=== PATIENT | female | born 1960 | race African-American/Black ===

== ENCOUNTER 2016-11-11 20:21 | Inpatient (IN) | payer OTHER, SELFPAY ==
[~2016-11-11] VITALS: Ht 160 cm; Wt 103.6 kg
[2016-11-11] MEDS ORDERED: FUROSEMIDE 40 MG/4 ML VIAL (J1940) IV ONE (21:15)
[2016-11-11] MEDS ORDERED: hydrALAZINE INJ 20 MG/ML VIAL IV ONE (21:15)
[2016-11-11] MEDS ORDERED: NITROGLYCERIN 2% OINT 1 GM *U/D* PKT TOP ONE (21:30)
[2016-11-11 21:42] LABS: MEAN CORPUSCULAR HEMOGLOBIN 18.2 pg (27.0-33.0); MEAN CORPUSCULAR HGB CONC 26.5 g/dl (32.0-36.5); MEAN CORPUSCULAR VOLUME 68.8 fl (80.0-96.0); PLATELET COUNT, AUTOMATED 340 k/mm3 (150-450); RED CELL DISTRIBUTION WIDTH 17.4 % (11.5-14.5); WHITE BLOOD COUNT 8.2 K/mm3 (4.0-10.0)
[2016-11-11 21:43] LABS: INR 1.01
[2016-11-11 21:58] LABS: ANION GAP 5 MEQ/L (8-16); BLOOD UREA NITROGEN 11 MG/DL (7-18); CALCIUM LEVEL 8.3 MG/DL (8.5-10.1); CARBON DIOXIDE LEVEL 31 MEQ/L (21-32); CHLORIDE LEVEL 103 MEQ/L (98-107); CREATININE FOR GFR 0.62 MG/DL (0.55-1.02); GLOMERULAR FILTRATION RATE > 60.0 (>51); GLUCOSE, FASTING 115 MG/DL (70-105); POTASSIUM SERUM 3.5 MEQ/L (3.5-5.1); SODIUM LEVEL 139 MEQ/L (136-145); T UPTAKE 35 % (30-39); THYROXINE (T4) 8.4 UG/DL (4.5-12.0)
[2016-11-11 22:30] LABS: ANISOCYTOSIS 1+; BASOPHILS 2 % (0-4); EOSINOPHILS 3 % (0-5); HYPOCHROMASIA 1+; MICROCYTOSIS 3+; POIKILOCYTOSIS 1+
[2016-11-11 22:31] LABS: OVALOCYTES 1+; POLYCHROMASIA 1+; SCHISTOCYTES 1+
[2016-11-12] VITALS (7 sets, daily range): BP systolic 122–162; BP diastolic 69–100
[2016-11-12] MEDS ORDERED: ONDANSETRON 4MG/2ML VIAL (J2405) IV PRN
[2016-11-12 05:24] LABS: MEAN CORPUSCULAR HEMOGLOBIN 17.9 pg (27.0-33.0); MEAN CORPUSCULAR HGB CONC 26.3 g/dl (32.0-36.5); MEAN CORPUSCULAR VOLUME 68.1 fl (80.0-96.0); RED CELL DISTRIBUTION WIDTH 17.4 % (11.5-14.5); RETIC HEMOGLOBIN CONTENT CHr 19.8 PG (24-36); RETICULOCYTE % ADVIA2120 2.4 % (0.5-1.5)
[2016-11-12] MEDS: ACETAMINOPHEN TAB 650MG DOSE (2X325MG) PO PRN (05:51)
[2016-11-12 06:01] LABS: ALBUMIN 3.3 GM/DL (3.2-5.2); ANION GAP 5 MEQ/L (8-16); BLOOD UREA NITROGEN 8 MG/DL (7-18); CARBON DIOXIDE LEVEL 32 MEQ/L (21-32); CHLORIDE LEVEL 105 MEQ/L (98-107); CREATININE FOR GFR 0.49 MG/DL (0.55-1.02); GLOMERULAR FILTRATION RATE > 60.0 (>51); GLUCOSE, FASTING 101 MG/DL (70-105); MAGNESIUM LEVEL 2.1 MG/DL (1.8-2.4); PERCENT SATURATION 3.3 % (13.2-37.4); PHOSPHORUS LEVEL 3.6 MG/DL (2.5-4.9); POTASSIUM SERUM 3.7 MEQ/L (3.5-5.1); SODIUM LEVEL 142 MEQ/L (136-145); TOTAL IRON BINDING CAPACITY 478 UG/DL (250-450)
[2016-11-12 06:02] LABS: FERRITIN 10 NG/ML (8-252)
--- NOTE | 2016-11-12 06:11 | HPE ---
DATE OF ADMISSION: 11/12/2016 PRIMARY CARE PROVIDER: None. CHIEF COMPLAINT: Shortness of breath. HISTORY OF PRESENT ILLNESS: Ms. Mack is pleasant, 56-year-old female with past medical history of right sided goiter who presented to the emergency department (ED) [facility] with complaint of worsening shortness of breath and chest tightness. Episode started earlier today at home while she was trying to lie down and take a nap. States that earlier during the day she went to school and was walking up three flights of stairs where she noticed her shortness of breath first started. However she went on about her day and later came home and rest. However, as she attempted to go lie down, she started developing shortness of breath and chest tightness. Tightness was located in the midsternal area. No radiation. No nausea, vomiting, numbness or tingling. No jaw pain. Because of her persistent symptoms, she decided to come in [facility] for further evaluation. The episode lasted for 2 hours and did not improve until she was given Lasix in the ED. States that she has had progressive shortness of breath ongoing for at least 6 months. Prior to 6 months ago was able to walk 5 miles a day without any difficulty with breathing. However, sometime around 6 months ago, noticed that she would get winded easily after walking 24 steps of stairs and walking 50 feet. Her symptoms would improve on its own with rest. However, they have worsened to the point that now lying flat or sitting will bring on shortness of breath. Associated with dry cough, which is worsened in the cold weather or around smoke or perfume, intermittent leg swelling, paroxysmal nocturnal dyspnea, pillow orthopnea, has been sleeping sitting upright to sleep. Has been more thirsty in the last week and drinks more than 4 bottles of water a day, each one is 34 ounces. Denies weight changes. Also, notices her symptoms tend to worsen when her neck is more swollen. Reports that she has had intermittent neck swelling ongoing in the last 2 years, and when it does get swollen she feels that it is cutting off her airway. Also endorses coughing spells whenever eating or swallowing pills. She has never been evaluated for her symptoms. In the ED was given Nitrobid and Lasix 40 mg times one. Since administration of Lasix, she has urinated six times, although this is not measured. PAST MEDICAL HISTORY: 1. Right goiter developed 2 years ago. Previously to this had thyroid nodule and was evaluated by Dr. Roman. Unfortunately, because of negative experience, she has since stopped going. 2. Anemia. 3. Phobia. 4. Leg spasms. PAST SURGICAL HISTORY: None. ALLERGIES: None. MEDICATIONS: - Advil 200 mg every 3 days for her restless leg and occasionally takes Tylenol. SOCIAL HISTORY: Patient is a nonsmoker. No alcohol or drug use. No travel. 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 Currently goes to school. No tuberculosis or asbestos exposure she is aware of. Currently lives at home. FAMILY HISTORY: Father in his 90s who is healthy. Mother who is 99 had multiple sclerosis (MS) and questionable CVA. A son who is 33 is cured from Hodgkin's lymphoma and one son with asthma. REVIEW OF SYSTEMS: CONSTITUTIONAL: Negative for fevers, chills, rigors, weight changes. Positive for decreased appetite. HEENT: No headaches, lightheadedness, dizziness. Positive for hoarse sounding whenever her neck is enlarged and intermittent difficulty with swallowing with food and pills. EYES: Negative for blurry vision, double vision, or transient vision loss. CARDIOVASCULAR: As above. PULMONARY: As above. GASTROINTESTINAL: Denies hematochezia, melena, or hematemesis, nausea, vomiting , diarrhea, constipation. GENITOURINARY: No dysuria, frequency or hematuria. MUSCULOSKELETAL: No bone, muscle, joint pain. NEUROLOGICAL: No paralysis, paresthesia, headaches. ENDOCRINE: Positive for right goiter, as mentioned above, positive for polydipsia. LYMPHATICS: Positive for right-sided neck mass, was told that she had a goiter. No lumps, bumps, or swelling anywhere in axilla, or groin. HEMATOLOGY: No abnormal bleeding or bruising. ONCOLOGY: No personal history of malignancy PSYCHIATRIC: Positive for phobia to hospitals and doctors. INTEGUMENT: No new rashes or lesions PHYSICAL EXAMINATION: VITAL SIGNS: Blood pressure initially was 179/84, repeat later was 142/90. Heart rate initially 112, repeat was 100. Temperature 98.2. Respiration rate 20. Pulse oximetry 96% on room air. GENERAL: Patient is sitting in bed of 90 degree angle, comfortable, no acute respiratory with psychiatric distress. Daughter at bedside. Pleasant, cooperative, although she appears easily anxious. Is able to speak in full sentences without any respiratory difficulty. HENT: Normocephalic, atraumatic. Moist oral mucosa with a few missing teeth. Oral mucosa is clear without any oral lesions appreciated. Nasal septum midline. EYES: Extraocular movement intact. Pupils equal and reactive to light. NECK: She has an enlarged mass on her right side measuring approximately 8 cm x 7 cm, nontender to palpation. States that she has had a larger size than this currently. There is thyromegaly on her left side as well, but less significant compared to her right. Neck vein is approximately by her ear sitting upright. Difficult to appreciate trachea due to her significant sized mass. LUNGS: Breath sounds are diminished bilateral lung bases, some dullness to the bilateral lung base, but no appreciable wheezing, rales or rhonchi. HEART: Is regular rate and rhythm with normal S1 and S2. Did not appreciate murmurs, rubs or gallop. ABDOMEN: Is obese but nontender, nondistended. Bowel sounds present. No guarding. No rebound. No paronychia sign. EXTREMITIES: Trace pitting edema bilateral lower extremity with left more so compared to right. Pedal pulses are present bilaterally. No clubbing of the nailbed. INTEGUMENT: No obvious rashes or lesions appreciated. GENITOURINARY (): Rectal exam performed with family present. Her hemoccult was negative. NEUROLOGIC: She is alert, awake, oriented times three. Strength 5/5 in all extremities. Sensory intact. Normal gait. PSYCHIATRIC: Appears anxious. Initially wanted leave but agreed to stay. LABORATORY DATA: WBC 8.2, hemoglobin 8.1, this has decreased from her labs back in 2001, at that point was 9.4, hematocrit 30.6 and platelet 340. Sodium 139, potassium 3.5, chloride 103, carbon dioxide 31, BUN 11, creatinine 0.62, glucose 115, calcium 8.2. Four sets of cardiac markers negative. Thyroid study normal. BNP 252. PT 13.4, INR 1.01. Chest x-ray shows cardiomegaly, some pulmonary congestion with trachea deviated. EKG show ventricular rate of 103, sinus tachycardia with occasional PVCs, left ventricular hypertrophy, poor R wave progression. IMPRESSION AND PLAN: Ms. Mack is 56-year-old female with history of anemia, right-sided goiter who presented to the emergency department [facility] with complaint of shortness of breath. 1. Shortness of breath. Possible causes include congestive heart failure (CHF) exacerbation, anemia, CAD versus other. The patient will be admitted for close monitoring. She responded well with the one time dose of Lasix IV given in the ED, although we do not have an accurate output after Lasix administration. Have started her on Lasix IV 40 twice a day with net negative, strict intake and output and daily weight. Continue to trend cardiac marker. In review of her prior labs going back to 2001, she has had history of anemia before. Therefore, will check iron studies. She was fecal occult blood test (FOBT) negative on exam today. Have ordered an echocardiogram to further evaluate her cardiac function. Her chest x-ray does show cardiomegaly and she does have left ventricular hypertrophy on EKG. 2. Anemia. She currently is hemodynamically stable without evidence of bleeding at this time. Have checked for iron studies as mentioned above. Continue to monitor. Question how much of this could also be related to dilutional due to her CHF. 3. Hypertension. The patient has no prior diagnosis of hypertension. Will continue Lasix. Have also added Norvasc. She was started on one time dose of Nitrobid in the ED. 4. Edema. Could be due to combination of obesity, CHF, and hypertension. Have ordered an echocardiogram as mentioned above. 5. Goiter. She has a significant sized mass on examination today. Per patient, she has had a size larger than this in the past. Her thyroid studies were normal. I have ordered an ultrasound of her neck to further evaluate as she appears to have enlargement on her left side as well. This might also contribute to her breathing. Patient also reports cough with eating food and swallowing pills. Have ordered for speech and swallow to further evaluate. 6. Obesity. Will complicate medical management. 7. Polydipsia with abnormal glucose. Will check hemoglobin A1c. 8. Deep venous thrombosis (DVT) prophylaxis. Sequential compressive device (SCD), thromboembolism deterrents (TEDs) and Lovenox. My preceptor for this patient encounter was Anat Rodriguez MD. The preceptor was physically present in the building during the encounter and was fully available. As needed, all aspects of the patient interview, examination, medical decision making process, and medical care plan development were reviewed and approved by the preceptor. The preceptor is aware and concurs with the plan as stated in the body of this note and will attest to such by his/her co-signature. FOSTER
[2016-11-12] MEDS ORDERED: ISOVUE-370 76% 100ML VIAL (Q9967) As Ordered ONE ×2 (07:36→08:44)
--- NOTE | 2016-11-12 08:19 | REP ---
Portable chest, single AP view, patient sitting: There are no comparisons. Cardiac size is enlarged. There are no focal infiltrates. No pleural effusions. There is no pulmonary edema. The superior trachea is deviated to the left in this patient with known goitrous enlargement of the thyroid right lobe. Signed by Wilfredo Solorio MD 11/12/2016 08:11 A
--- NOTE | 2016-11-12 08:32 | REP ---
Thyroid ultrasound: There are no comparisons. The right lobe is markedly enlarged and markedly heterogeneous diffusely with no normal thyroid parenchyma identified. The right lobe measures 13.8 x 8.3 x 6.8 cm. The left lobe is normal size measuring 4.3 x 1.9 x 1.6 cm. There are two left lobe heterogeneous nodules, one at the upper/mid pole maximally measuring 1.3 cm, and the other in the lower pole maximally measuring 0.9 cm. The left lobe parenchyma is heterogeneous. The isthmus is mildly thickened measuring 3.7 meters. Signed by Wilfredo Solorio MD 11/12/2016 08:23 A
[2016-11-12] MEDS: METOPROLOL TART 25 MG TABLET PO SCH ×2 (09:00→20:44)
[2016-11-12] MEDS: amLODIPine 5 MG TAB PO SCH (09:25)
[2016-11-12] MEDS ORDERED: ACETAMINOPHEN TAB 650MG DOSE (2X325MG) PO PRN (09:30)
--- NOTE | 2016-11-12 09:38 | REP ---
CT of the chest with IV contrast, CT pulmonary angiography: There is a large superior mediastinal mass on the right, likely enlarged right lobe of the thyroid. This mass displaces the upper trachea and hypopharynx to the left and slightly effaces the upper trachea and hypopharynx. There are no emboli in the pulmonary trunk or central pulmonary arteries. There are no emboli in the pulmonary artery lobe or segment branches. There are no infiltrates, effusions or masses. There are numerous bulla replacing the lung parenchyma in the left upper lobe. There are scattered bulla throughout the remainder of the lung meyers bilaterally. Findings are compatible with bullous emphysema. The thoracic aorta is unremarkable. Cardiac size is enlarged. There is no pericardial effusion. Images of the visualized upper abdomen are somewhat degraded from beam hardening artifact as a consequence of patient size, however, the visualized upper abdominal contents are grossly unremarkable. Impression: There are no pulmonary emboli. There are no infiltrates, effusions or masses. There are findings compatible with bullous emphysema. There is a large anterior mediastinal mass on the right, likely the enlarged right lobe of the thyroid. This mass displaces and effaces the upper trachea and hypopharynx. Signed by Wilfredo Solorio MD 11/12/2016 09:30 A
[2016-11-12] MEDS: ENOXAPARIN 40 MG/0.4 ML SYRINGE (J1650) SC SCH (09:44)
--- NOTE | 2016-11-12 09:52 | REP ---
CT NECK WITH CONTRAST: HISTORY: Thyroid mass. A large mass with mild heterogeneous enhancement is present arising from the right thyroid lobe. The mass measures 9.7 cm in transverse by 6.3 cm in AP by 11.9 cm in cephalocaudal dimensions. There is inferior extension into the thoracic inlet. There is superior extension in the right carotid and retropharyngeal spaces to the level of the soft palate. There is a moderate mass effect on the franchesca- and hypopharynx, larynx and subglottic trachea. The nasopharynx is normal in appearance. The left thyroid lobe is normal in appearance. The surrounding tissue planes are intact. An enlarged lymph node 1.4 cm in width is present in the right posterior triangle at the level of the oropharynx. An enlarged lymph node 1.1 cm in width is present in the left posterior triangle at the level of the oropharynx. Small lymph nodes less than 1 cm in size are present in the submandibular and submental areas. Degenerative change is present in the cervical spine. The lung apices are clear. The visualized sinuses are clear. IMPRESSION: There is a large mass arising from the right thyroid lobe with moderate mass effect on the franchesca- and hypopharynx, larynx and subglottic trachea. Signed by Meng Moss MD 11/12/2016 10:01 A
[2016-11-12] MEDS: FUROSEMIDE 40 MG/4 ML VIAL (J1940) IV SCH (11:57)
[2016-11-12] MEDS ORDERED: POTASSIUM CHLORIDE 10 MEQ SR TABLET PO ONE (14:45)
--- NOTE | 2016-11-12 15:14 | ECGEPIP ---
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 Electronically Signed On 11-12-2016 15:14:26 EDT by Jeramie Gomes
--- NOTE | 2016-11-12 18:29 | ECGEPIP ---
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
[2016-11-13] VITALS (8 sets, daily range): BP systolic 122–164; BP diastolic 71–86
[2016-11-13] MEDS: ACETAMINOPHEN TAB 650MG DOSE (2X325MG) PO PRN (00:37)
[2016-11-13 05:24] LABS: MEAN CORPUSCULAR HGB CONC 26.2 g/dl (32.0-36.5); MEAN CORPUSCULAR VOLUME 68.8 fl (80.0-96.0); RED CELL DISTRIBUTION WIDTH 17.3 % (11.5-14.5); WHITE BLOOD COUNT 7.1 K/mm3 (4.0-10.0)
[2016-11-13 05:37] LABS: ALBUMIN 3.1 GM/DL (3.2-5.2); ANION GAP 5 MEQ/L (8-16); BLOOD UREA NITROGEN 12 MG/DL (7-18); CALCIUM LEVEL 8.2 MG/DL (8.5-10.1); CARBON DIOXIDE LEVEL 31 MEQ/L (21-32); CHLORIDE LEVEL 106 MEQ/L (98-107); CREATININE FOR GFR 0.58 MG/DL (0.55-1.02); GLOMERULAR FILTRATION RATE > 60.0 (>51); GLUCOSE, FASTING 112 MG/DL (70-105); MAGNESIUM LEVEL 2.4 MG/DL (1.8-2.4); PHOSPHORUS LEVEL 4.2 MG/DL (2.5-4.9); SODIUM LEVEL 142 MEQ/L (136-145)
[2016-11-13] MEDS: amLODIPine 5 MG TAB PO SCH (08:16)
[2016-11-13] MEDS: ENOXAPARIN 40 MG/0.4 ML SYRINGE (J1650) SC SCH (08:17)
[2016-11-13] MEDS: METOPROLOL TART 25 MG TABLET PO SCH ×2 (08:17→20:41)
[2016-11-13] MEDS ORDERED: SLF 3 ML SYR IV PRN (10:45)
--- NOTE | 2016-11-13 11:39 | IPNPDOC ---
Text Note Date of Service The patient was seen on 11/13/16. NOTE Subjective: Patient states her dyspnea has significantly improved. Minimal dysphagia. Objective: Vitals: (see below) General: No acute distress, laying comfortably in bed. HEENT: Very large thyroid mass on the right, extending towards the trachea. No bruit. No stridor. Neck: No JVD or lymphadenopathy Cardiac: RRR, No murmurs Pulm: Diminished breath sounds and mild hoarse crackles at the bases b/l. No wheezing, rhonchi Abd: NT/ND + BS Ext: No edema or cyanosis Labs (see below) Images: CTA Chest 11/12/16 Impression: There are no pulmonary emboli. There are no infiltrates, effusions or masses. There are findings compatible with bullous emphysema. There is a large anterior mediastinal mass on the right, likely the enlarged right lobe of the thyroid. This mass displaces and effaces the upper trachea and hypopharynx. CT Neck 11/12/16 A large mass with mild heterogeneous enhancement is present arising from the right thyroid lobe. The mass measures 9.7 cm in transverse by 6.3 cm in AP by 11.9 cm in cephalocaudal dimensions. There is inferior extension into the thoracic inlet. There is superior extension in the right carotid and retropharyngeal spaces to the level of the soft palate. There is a moderate mass effect on the franchesca- and hypopharynx, larynx and subglottic trachea. The nasopharynx is normal in appearance. The left thyroid lobe is normal in appearance. The surrounding tissue planes are intact. An enlarged lymph node 1.4 cm in width is present in the right posterior triangle at the level of the oropharynx. An enlarged lymph node 1.1 cm in width is present in the left posterior triangle at the level of the oropharynx. Small lymph nodes less than 1 cm in size are present in the submandibular and submental areas. Degenerative change is present in the cervical spine. The lung apices are clear. The visualized sinuses are clear. IMPRESSION: There is a large mass arising from the right thyroid lobe with moderate mass effect on the franchesca- and hypopharynx, larynx and subglottic trachea. Assessment/Plan 1. Acute decompensated heart failure- echocardiogram pending to evaluate ejection fraction. Tolerating diuretics well. Symptoms have significantly improved. EKG with no acute ST changes. Cardiac enzymes negative. We'll continue to monitor. 2. Very large thyroid mass causing mass effect- spoke with Dr. Galvin, we will be speaking with his colleague regarding surgical intervention. He does believe that the patient will likely benefit from a tertiary care center for excision of this mass. In the meantime, patient will be getting a thyroid biopsy to determine if this is malignant in nature. Thyroid function tests within normal limits. 3. Chronic anemia- appears to be iron deficiency anemia- no acute bleeding at this time. No vaginal bleeding. No reported hematochezia or melanotic stools. Will need outpatient colonoscopy. 4. Hypertension- controlled continue current meds 5. Obesity DVT prophy: Lovenox subcutaneous VS,Fishbone, I+O VS, Fishbone, I+O Laboratory Tests 11/13/16 05:05 Anion Gap 5 L, Red Blood Count 4.61, Mean Corpuscular Volume 68.8 L, Mean Corpuscular Hemoglobin 18.0 L, Mean Corpuscular Hemoglobin Concent 26.2 L, Red Cell Distribution Width 17.3 H Vital Signs Date Time Temp Pulse Resp B/P Pulse Ox O2 Delivery O2 Flow Rate FiO2 11/13/16 08:16 87 131/86 11/13/16 04:41 98.1 18 93 Room Air 11/11/16 21:34 96 I&O- Last 24 Hours up to 6 AM 11/13/16 06:00 Intake Total 720 ml Output Total 2250 ml Balance -1530 ml JOSUÉ YOUNGBLOOD MD Nov 13, 2016 11:39
[2016-11-13] MEDS: SLF 3 ML SYR IV SCH ×2 (12:42→20:41)
[2016-11-13] MEDS: FUROSEMIDE 40 MG/4 ML VIAL (J1940) IV SCH ×2 (12:42)
[2016-11-13] MEDS ORDERED: LIDOCAINE 1% MDV 20ML VIAL As Ordered ONE (14:06)
--- NOTE | 2016-11-13 18:19 | ECHO ---
DATE OF PROCEDURE: 11/13/2016 AGE: 56 GENDER: Female HEIGHT: 160 cm WEIGHT: 104 kg BODY SURFACE AREA: 2.05 m2 PATIENT LOCATION: Inpatient, PCU, room 3222 REFERRING PHYSICIAN: Anat Rodriguez MD INDICATION: Dyspnea. 2D MEASUREMENTS: RV: 3.5 cm LV: 6.7 cm Septum: 1.2 cm Posterior wall: 1.2 cm Aortic root: 3.0 cm LA: 5.0 cm COMMENTS: Normal sinus rhythm without intraventricular conduction disturbance. Prominently dilated left ventricle and left atrium. Right ventricle was upper limits of normal. LV wall thickness and right ventricular free wall thickness were also upper limits of normal in size. On real-time imaging from the parasternal and apical projections wall motion was mildly globally hypokinetic with estimated left ventricular ejection fraction of 35 - 40%. Normal-appearing mitral valvular apparatus and leaflet excursion with no posterior systolic buckling. Three equal size aortic cusps with marginally thickened cusp edges, but adequate cusp separation. Normal aortic root size. No apparent intracardiac mass or pericardial effusion. CONCLUSIONS: Findings in keeping with a dilated cardiomyopathy and moderate impairment of global resting left ventricular systolic function.
--- NOTE | 2016-11-13 20:28 | REP ---
Ultrasound-guided fine needle aspiration and core needle biopsy right thyroid mass lesion. History: Large right-sided goiter. Swallowing difficulty. Airway displacement. Procedure: The patient was interviewed and informed consent was obtained. The patient was placed semirecumbent and preliminary sonography confirms the presence of a heterogeneous solid right thyroid mass lesion. The skin was marked at an optimum biopsy entry site. After patient safety time-out was articulated and agreed to, the anterior neck skin was prepped and draped in the usual fashion. Utilizing 1% lidocaine for local anesthetic and real-time sonographic guidance, a series of four 1-1/2 inch 25 gauge needles were passed into the right thyroid mass without technical difficulty and a fine needle aspiration biopsy was accomplished. To core biopsy specimens were retrieved with a 19/20 gauge coaxial Temno cutting needle. The patient tolerated the procedure well. Specimens were submitted to cytology for histologic analysis. Impression: Ultrasound guided needle biopsy and fine needle aspiration biopsy right sided goiter. Signed by Juan Antonio Vaughan MD 11/14/2016 07:52 A
[2016-11-14] MEDS: FUROSEMIDE 40 MG/4 ML VIAL (J1940) IV SCH (00:23)
[2016-11-14 04:00] VITALS: BP 127/85
[2016-11-14] MEDS: SLF 3 ML SYR IV SCH ×2 (04:39→13:30)
[2016-11-14 05:37] LABS: MEAN CORPUSCULAR HGB CONC 26.3 g/dl (32.0-36.5); MEAN CORPUSCULAR VOLUME 68.5 fl (80.0-96.0); RED CELL DISTRIBUTION WIDTH 17.4 % (11.5-14.5); WHITE BLOOD COUNT 7.3 K/mm3 (4.0-10.0)
[2016-11-14 05:42] LABS: ANION GAP 5 MEQ/L (8-16); BLOOD UREA NITROGEN 11 MG/DL (7-18); CALCIUM LEVEL 8.2 MG/DL (8.5-10.1); CARBON DIOXIDE LEVEL 32 MEQ/L (21-32); CHLORIDE LEVEL 103 MEQ/L (98-107); CREATININE FOR GFR 0.48 MG/DL (0.55-1.02); GLOMERULAR FILTRATION RATE > 60.0 (>51); GLUCOSE, FASTING 104 MG/DL (70-105); MAGNESIUM LEVEL 2.1 MG/DL (1.8-2.4); PHOSPHORUS LEVEL 4.3 MG/DL (2.5-4.9); POTASSIUM SERUM 3.5 MEQ/L (3.5-5.1); SODIUM LEVEL 140 MEQ/L (136-145)
[2016-11-14 08:00] VITALS: BP 133/92
[2016-11-14] MEDS ORDERED: POTASSIUM CHLORIDE 10 MEQ SR TABLET PO ONE (08:00)
[2016-11-14] MEDS: amLODIPine 5 MG TAB PO SCH (08:26)
[2016-11-14] MEDS: METOPROLOL TART 25 MG TABLET PO SCH (08:26)
[2016-11-14] MEDS: ENOXAPARIN 40 MG/0.4 ML SYRINGE (J1650) SC SCH (08:27)
[2016-11-14] MEDS ORDERED: LISINOPRIL *2.5 MG* TAB PO SCH (09:00)
[2016-11-14] MEDS ORDERED: SPIRONOLACTONE 12.5MG PER 1/2 TABLET PO SCH (09:00)
[2016-11-14] MEDS ORDERED: FUROSEMIDE 40 MG TAB PO SCH (09:00)
[2016-11-14 12:00] VITALS: BP 132/76
--- NOTE | 2016-11-14 14:17 | DS.PDOC ---
Discharge Summary General Date of Admission Nov 12, 2016 at 08:59 Date of Discharge 11/14/16 Attending Physician: JOSUÉ YOUNGBLOOD MD Specialist/Consultants Involve: FRANCISCA GALVIN MD Discharge Summary PROCEDURES PERFORMED DURING STAY: None. ADMITTING/ISCHARGE DIAGNOSES: 1. Acute systolic and diastolic heart failure 2. Extensive thyroid mass with mass effect on hypopharynx/larynx/subglottic trachea 3. 3 beat Nonsustained V. tach 4. Chronic iron deficiency anemia 5. Hypertension 6. Obesity COMPLICATIONS/CHIEF COMPLAINT: Chf Exacerbation. HISTORY OF PRESENT ILLNESS/HOSPITAL COURSE: . This is a 56-year-old female past medical history of thyroid goiter, hypertension who presents complaining of dyspnea on exertion and orthopnea. Patient states that she initially had symptoms of worsening dyspnea and chest tightness that started the day prior to admission. She had progressed to having orthopnea. Patient started to walk up the stairs with progressive dyspnea on exertion. Patient denied any palpitations/syncopal episodes. She did have some mild tightness in the midsternal region that was nonradiating with no jaw pain. Given that the episode of dyspnea lasted for 2 hours, patient presented to the ED. On further investigation, patient was noted to have progressive dyspnea on exertion over the past 6 months. Prior to that she was able to walk 5 miles without difficulty. On admission patient was noted to have been decompensated heart failure. Patient was diuresed with Lasix and tolerated therapy well. Patient's dyspnea significantly improved. Of note patient did have an echocardiogram notable for 35-40% ejection fraction as well as diastolic dysfunction. The patient was started on metoprolol, lisinopril, spironolactone, and continue Lasix. The patient also had 1 episode of 3 beats nonsustained V. tach, during which she was asymptomatic. Patient had no recurrent episodes. The patient is much improved from a heart failure perspective. Patient will need to be followed up with Dr. Haddad for further management outpatient. On physical exam the patient was also noted to have a very large thyroid mass, which was imaged with a CT of the neck with contrast (see below). ENT was consulted, given the extent from the base of the skull to the mediastinum, Dr. Galvin has recommended that the patient be transferred to a tertiary center for further management. In the meantime the patient did have a biopsy of this thyroid mass with pathology pending. DISCHARGE MEDICATIONS: Please see below. ALLERGIES: Please see below. PHYSICAL EXAMINATION ON DISCHARGE: VITAL SIGNS: Please see below. General: No acute distress, laying comfortably in bed. HEENT: Very large thyroid mass on the right, extending towards the trachea. No bruit. No stridor. Neck: No JVD or lymphadenopathy Cardiac: RRR, No murmurs Pulm: Diminished breath sounds and mild hoarse crackles at the bases b/l. No wheezing, rhonchi Abd: NT/ND + BS Ext: No edema or cyanosis LABORATORY DATA: Please see below. IMAGING: CTA Chest 11/12/16 Impression: There are no pulmonary emboli. There are no infiltrates, effusions or masses. There are findings compatible with bullous emphysema. There is a large anterior mediastinal mass on the right, likely the enlarged right lobe of the thyroid. This mass displaces and effaces the upper trachea and hypopharynx. CT Neck 11/12/16 A large mass with mild heterogeneous enhancement is present arising from the right thyroid lobe. The mass measures 9.7 cm in transverse by 6.3 cm in AP by 11.9 cm in cephalocaudal dimensions. There is inferior extension into the thoracic inlet. There is superior extension in the right carotid and retropharyngeal spaces to the level of the soft palate. There is a moderate mass effect on the franchesca- and hypopharynx, larynx and subglottic trachea. The nasopharynx is normal in appearance. The left thyroid lobe is normal in appearance. The surrounding tissue planes are intact. An enlarged lymph node 1.4 cm in width is present in the right posterior triangle at the level of the oropharynx. An enlarged lymph node 1.1 cm in width is present in the left posterior triangle at the level of the oropharynx. Small lymph nodes less than 1 cm in size are present in the submandibular and submental areas. Degenerative change is present in the cervical spine. The lung apices are clear. The visualized sinuses are clear. IMPRESSION: There is a large mass arising from the right thyroid lobe with moderate mass effect on the franchesca- and hypopharynx, larynx and subglottic trachea. Echo 11/13/16 Prominently dilated left ventricle and left atrium. Right ventricle was upper limits of normal. LV wall thickness and right ventricular free wall thickness were also upper limits of normal in size. On real-time imaging from the parasternal and apical projections wall motion was mildly globally hypokinetic with estimated left ventricular ejection fraction of 35 - 40%. Normal-appearing mitral valvular apparatus and leaflet excursion with no posterior systolic buckling. Three equal size aortic cusps with marginally thickened cusp edges, but adequate cusp separation. Normal aortic root size. No apparent intracardiac mass or pericardial effusion. CONCLUSIONS: Findings in keeping with a dilated cardiomyopathy and moderate impairment of global resting left ventricular systolic function. Assessment/Plan 1. Acute decompensated heart failure- echocardiogram pending to evaluate ejection fraction. Tolerating diuretics well. Symptoms have significantly improved. EKG with no acute ST changes. Cardiac enzymes negative. We'll continue to monitor. 2. Very large thyroid mass causing mass effect- spoke with Dr. Galvin, we will be speaking with his colleague regarding surgical intervention. He does believe that the patient will likely benefit from a tertiary care center for excision of this mass. In the meantime, patient will be getting a thyroid biopsy to determine if this is malignant in nature. Thyroid function tests within normal limits. 3. Chronic anemia- appears to be iron deficiency anemia- no acute bleeding at this time. No vaginal bleeding. No reported hematochezia or melanotic stools. Will need outpatient colonoscopy. 4. Hypertension- controlled continue current meds 5. Obesity PROGNOSIS: Fair ACTIVITY: As tolerated. DIET: Low-sodium DISCHARGE PLAN/DISPOSITION: Transfer to [facility] DISCHARGE INSTRUCTIONS: 1. Follow-up with PCP and Dr. Song on 1-2 weeks after being discharged. DISCHARGE CONDITION: Stable. TIME SPENT ON DISCHARGE: Greater than 30 minutes. Vital Signs/I&Os Vital Signs Date Time Temp Pulse Resp B/P Pulse Ox O2 Delivery O2 Flow Rate FiO2 11/14/16 12:00 98.1 82 20 132/76 98 Room Air 11/11/16 21:34 96 I&O- Last 24 Hours up to 6 AM 11/14/16 06:00 Intake Total 1660 ml Output Total 2100 ml Balance -440 ml Laboratory Data Labs 24H Laboratory Tests 2 11/14/16 05:12: Albumin 3.0L, Blood Urea Nitrogen 11, Creatinine 0.48L, Sodium Level 140, Potassium Level 3.5, Chloride Level 103, Carbon Dioxide Level 32, Anion Gap 5L, Calcium Level 8.2L, Glomerular Filtration Rate > 60.0, Magnesium Level 2.1, Phosphorus Level 4.3 CBC/BMP Laboratory Tests 11/14/16 05:12 Anion Gap 5 L, Red Blood Count 4.55, Mean Corpuscular Volume 68.5 L, Mean Corpuscular Hemoglobin 18.0 L, Mean Corpuscular Hemoglobin Concent 26.3 L, Red Cell Distribution Width 17.4 H Discharge Medications Scheduled Furosemide (Furosemide) 40 Mg Tab 40 MG PO DAILY Lisinopril (Lisinopril) 2.5 Mg Tab 2.5 MG PO DAILY Metoprolol Tartrate (Lopressor) 50 Mg Tab 50 MG PO BID Spironolactone (Aldactone) 25 Mg Tab 12.5 MG PO DAILY Allergies Coded Allergies: No Known Allergies (Unverified , 11/11/16) JOSUÉ YOUNGBLOOD MD Nov 14, 2016 14:17
[2016-11-14] MEDS ORDERED: ALDA25TA2 PO (15:20)
[2016-11-14] MEDS ORDERED: LOPR1TAB6 PO (15:20)
[2016-11-14] MEDS ORDERED: LISI25TA PO (15:20)
[2016-11-14] MEDS ORDERED: FURO40TA2 PO (15:20)
[2016-11-14 16:00] VITALS: BP 134/77
[2016-11-14 20:00] VITALS: BP 150/67
[2016-11-14] MEDS ORDERED: METOPROLOL TART 50 MG TAB PO SCH (21:00)
== END 2016-11-14 21:04 | disposition short-term general hospital (02) | DRG 194 ==
LOC: M ED 21:48 → M ED INP 11-12 00:16 → M MS5PR 11-12 01:33 → OBSVTOIN 11-12 08:59 → M PCU 11-12 09:49
PROVIDERS: ADMIT Internal Medicine Nephrology; ATTEND Internal Medicine
PROC: 0GBH3ZX Excision of Right Thyroid Gland Lobe, Percutaneous Approach, Diagnostic (ICD-10-PCS; principal; 2016-11-13)
DX: I50.31 Acute diastolic (congestive) heart failure (principal); Z68.41 Body mass index [BMI] 40.0-44.9, adult; D50.9 Iron deficiency anemia, unspecified; E04.9 Nontoxic goiter, unspecified; E66.9 Obesity, unspecified; G25.81 Restless legs syndrome; I11.0 Hypertensive heart disease with heart failure

== ENCOUNTER → 2018-03-04 | Outpatient (CLI) | payer OTHER ==
[2018-03-04 17:09] LABS: BASO # 0.1 10^3/uL (0.0-0.2); BASO % 1.3 % (0.0-1.0); EOS # 0.2 10^3/uL (0.0-0.50); EOS % 2.2 % (0.0-3.0); HEMATOCRIT 38.8 % (36.0-47.0); HEMOGLOBIN 11.8 g/dl (12.0-15.5); IMMATURE GRANULOCYTE % 0.3 % (0-3.0); LYMPH # 2.6 10^3/uL (1.5-4.5); LYMPH % 38.2 % (24.0-44.0); MEAN CORPUSCULAR HEMOGLOBIN 24.7 pg (27.0-33.0); MEAN CORPUSCULAR HGB CONC 30.4 g/dl (32.0-36.5); MEAN CORPUSCULAR VOLUME 81.3 fl (80.0-96.0); MONO # 0.8 10^3/uL (0.0-0.8); MONO % 11.2 % (0.0-5.0); NEUTROPHILS # 3.1 10^3/uL (1.8-7.7); NEUTROPHILS % 46.8 % (36.0-66.0); PLATELET COUNT, AUTOMATED 329 10^3/uL (150-450); RED BLOOD COUNT 4.77 10^6/uL (4.00-5.40); RED CELL DISTRIBUTION WIDTH 15.8 % (11.5-14.5); WHITE BLOOD COUNT 6.7 10^3/uL (4.0-10.0)
[2018-03-04 17:10] LABS: ANION GAP 6 MEQ/L (8-16); BLOOD UREA NITROGEN 12 MG/DL (7-18); CALCIUM LEVEL 8.5 MG/DL (8.5-10.1); CARBON DIOXIDE LEVEL 32 MEQ/L (21-32); CHLORIDE LEVEL 105 MEQ/L (98-107); CREATININE FOR GFR 0.67 MG/DL (0.55-1.30); GLOMERULAR FILTRATION RATE > 60.0 (>51); GLUCOSE, FASTING 103 MG/DL (70-100); POTASSIUM SERUM 4.1 MEQ/L (3.5-5.1); SODIUM LEVEL 143 MEQ/L (136-145)
== END ==
LOC: M WUC 13:02
DX: Z01.818 Encounter for other preprocedural examination (principal); I51.9 Heart disease, unspecified
CPT/HCPCS: 80048

== ENCOUNTER 2018-06-26 09:41 | Inpatient (IN) | payer OTHER ==
[2018-06-26 10:20] LABS: BASO # 0.1 10^3/uL (0.0-0.2); BASO % 1.2 % (0.0-1.0); EOS # 0.1 10^3/uL (0.0-0.50); EOS % 1.3 % (0.0-3.0); HEMATOCRIT 37.1 % (36.0-47.0); HEMOGLOBIN 11.1 g/dl (12.0-15.5); IMMATURE GRANULOCYTE % 0.4 % (0-3.0); LYMPH # 1.5 10^3/uL (1.5-4.5); MEAN CORPUSCULAR HEMOGLOBIN 24.8 pg (27.0-33.0); MEAN CORPUSCULAR HGB CONC 29.9 g/dl (32.0-36.5); MEAN CORPUSCULAR VOLUME 82.8 fl (80.0-96.0); MONO # 0.6 10^3/uL (0.0-0.8); NEUTROPHILS # 4.6 10^3/uL (1.8-7.7); NEUTROPHILS % 67.1 % (36.0-66.0); PLATELET COUNT, AUTOMATED 310 10^3/uL (150-450); RED BLOOD COUNT 4.48 10^6/uL (4.00-5.40); RED CELL DISTRIBUTION WIDTH 15.9 % (11.5-14.5); WHITE BLOOD COUNT 6.9 10^3/uL (4.0-10.0)
[2018-06-26] MEDS: FUROSEMIDE 40 MG/4 ML VIAL (J1940) IV ×4 (10:23→21:30)
[2018-06-26 10:42] LABS: ALBUMIN 3.1 GM/DL (3.2-5.2); ALKALINE PHOSPHATASE 128 U/L (45-117); ALT/SGPT 48 U/L (12-78); ANION GAP 8 MEQ/L (8-16); AST/SGOT 43 U/L (7-37); BILIRUBIN,DIRECT 0.4 MG/DL (0.0-0.2); BILIRUBIN,TOTAL 1.8 MG/DL (0.2-1.0); BLOOD UREA NITROGEN 17 MG/DL (7-18); CALCIUM LEVEL 8.2 MG/DL (8.5-10.1); CARBON DIOXIDE LEVEL 28 MEQ/L (21-32); CHLORIDE LEVEL 104 MEQ/L (98-107); CPK CREATINE PHOSPHOKINASE 65 U/L (26-192); CREATININE FOR GFR 0.74 MG/DL (0.55-1.30); GLOMERULAR FILTRATION RATE > 60.0 (>51); GLUCOSE, FASTING 162 MG/DL (70-100); MB/CK RELATIVE INDEX 1.54 (< OR =4); NT-PRO BNP 638 PG/ML (<125); POTASSIUM SERUM 3.8 MEQ/L (3.5-5.1); SODIUM LEVEL 140 MEQ/L (136-145); THYROXINE (T4) 7.7 UG/DL (4.5-12.0); TOTAL PROTEIN 7.5 GM/DL (6.4-8.2); TROPONIN I < 0.02 NG/ML (< 0.10)
[2018-06-26 10:58] LABS: ESTIMATED AVERAGE GLUCOSE 174 MG/DL (60-110); HEMOGLOBIN A1c 7.7 %
[2018-06-26] MEDS: POTASSIUM CHLORIDE 10 MEQ SR TABLET PO (12:37)
[2018-06-26] MEDS ORDERED: SLF 3 ML SYR IV (15:30)
[2018-06-26] MEDS: LOSARTAN 50 MG TAB PO (21:29)
[2018-06-26] MEDS: CARVedilol 12.5 MG TAB PO (21:29)
[2018-06-26] MEDS: SLF 3 ML SYR IV (21:30)
[2018-06-27] MEDS: FUROSEMIDE 40 MG/4 ML VIAL (J1940) IV ×3 (01:14→17:26)
[2018-06-27 04:40] LABS: BASO # 0.1 10^3/uL (0.0-0.2); BASO % 1.1 % (0.0-1.0); EOS # 0.1 10^3/uL (0.0-0.50); EOS % 1.5 % (0.0-3.0); HEMATOCRIT 35.5 % (36.0-47.0); HEMOGLOBIN 10.8 g/dl (12.0-15.5); IMMATURE GRANULOCYTE % 0.4 % (0-3.0); LYMPH # 1.8 10^3/uL (1.5-4.5); LYMPH % 24.7 % (24.0-44.0); MEAN CORPUSCULAR HEMOGLOBIN 24.8 pg (27.0-33.0); MEAN CORPUSCULAR HGB CONC 30.4 g/dl (32.0-36.5); MEAN CORPUSCULAR VOLUME 81.6 fl (80.0-96.0); MONO # 0.7 10^3/uL (0.0-0.8); MONO % 8.9 % (0.0-5.0); NEUTROPHILS # 4.6 10^3/uL (1.8-7.7); NEUTROPHILS % 63.4 % (36.0-66.0); PLATELET COUNT, AUTOMATED 282 10^3/uL (150-450); RED BLOOD COUNT 4.35 10^6/uL (4.00-5.40); RED CELL DISTRIBUTION WIDTH 15.9 % (11.5-14.5); WHITE BLOOD COUNT 7.3 10^3/uL (4.0-10.0)
[2018-06-27 04:59] LABS: ALBUMIN 3.2 GM/DL (3.2-5.2); ALBUMIN/GLOBULIN RATIO 0.74 (1.00-1.93); ALKALINE PHOSPHATASE 118 U/L (45-117); ALT/SGPT 47 U/L (12-78); ANION GAP 6 MEQ/L (8-16); AST/SGOT 29 U/L (7-37); BILIRUBIN,TOTAL 1.6 MG/DL (0.2-1.0); BLOOD UREA NITROGEN 19 MG/DL (7-18); CALCIUM LEVEL 8.5 MG/DL (8.5-10.1); CARBON DIOXIDE LEVEL 32 MEQ/L (21-32); CHLORIDE LEVEL 102 MEQ/L (98-107); CREATININE FOR GFR 0.85 MG/DL (0.55-1.30); GLOMERULAR FILTRATION RATE > 60.0 (>51); GLUCOSE, FASTING 201 MG/DL (70-100); MAGNESIUM LEVEL 2.2 MG/DL (1.8-2.4); POTASSIUM SERUM 3.3 MEQ/L (3.5-5.1); SODIUM LEVEL 140 MEQ/L (136-145); TOTAL PROTEIN 7.5 GM/DL (6.4-8.2)
[2018-06-27] MEDS: SLF 3 ML SYR IV ×3 (06:00→19:55)
[2018-06-27] MEDS: SPIRONOLACTONE 25 MG TAB PO (08:40)
[2018-06-27] MEDS: CARVedilol 12.5 MG TAB PO ×2 (08:41→19:55)
[2018-06-27] MEDS: POTASSIUM CHLORIDE 10 MEQ SR TABLET PO ×2 (08:41→10:17)
[2018-06-27] MEDS: ENOXAPARIN 40 MG/0.4 ML SYRINGE (J1650) SC (11:14)
[2018-06-27 18:55] LABS: CK-MB VALUE MASS < 1.0 NG/ML (<3.6); CPK CREATINE PHOSPHOKINASE 56 U/L (26-192); MB/CK RELATIVE INDEX 1.79 (< OR =4); TROPONIN I < 0.02 NG/ML (< 0.10)
[2018-06-27] MEDS: LOSARTAN 50 MG TAB PO (19:55)
[2018-06-28 05:45] LABS: BASO # 0.1 10^3/uL (0.0-0.2); BASO % 1.2 % (0.0-1.0); EOS # 0.2 10^3/uL (0.0-0.50); EOS % 2.3 % (0.0-3.0); HEMATOCRIT 36.2 % (36.0-47.0); HEMOGLOBIN 10.9 g/dl (12.0-15.5); IMMATURE GRANULOCYTE % 0.2 % (0-3.0); LYMPH # 2.3 10^3/uL (1.5-4.5); LYMPH % 34.6 % (24.0-44.0); MEAN CORPUSCULAR HEMOGLOBIN 24.7 pg (27.0-33.0); MEAN CORPUSCULAR HGB CONC 30.1 g/dl (32.0-36.5); MEAN CORPUSCULAR VOLUME 82.1 fl (80.0-96.0); MONO # 0.7 10^3/uL (0.0-0.8); MONO % 10.8 % (0.0-5.0); NEUTROPHILS # 3.3 10^3/uL (1.8-7.7); NEUTROPHILS % 50.9 % (36.0-66.0); PLATELET COUNT, AUTOMATED 290 10^3/uL (150-450); RED BLOOD COUNT 4.41 10^6/uL (4.00-5.40); RED CELL DISTRIBUTION WIDTH 15.9 % (11.5-14.5); WHITE BLOOD COUNT 6.6 10^3/uL (4.0-10.0)
[2018-06-28] MEDS: SLF 3 ML SYR IV ×3 (06:00→21:59)
[2018-06-28 06:17] LABS: ALBUMIN 3.1 GM/DL (3.2-5.2); ALKALINE PHOSPHATASE 112 U/L (45-117); ALT/SGPT 41 U/L (12-78); ANION GAP 6 MEQ/L (8-16); AST/SGOT 18 U/L (7-37); BILIRUBIN,TOTAL 1.4 MG/DL (0.2-1.0); BLOOD UREA NITROGEN 20 MG/DL (7-18); CALCIUM LEVEL 8.3 MG/DL (8.5-10.1); CARBON DIOXIDE LEVEL 31 MEQ/L (21-32); CHLORIDE LEVEL 103 MEQ/L (98-107); CK-MB VALUE MASS < 1.0 NG/ML (<3.6); CPK CREATINE PHOSPHOKINASE 45 U/L (26-192); GLOMERULAR FILTRATION RATE > 60.0 (>51); GLUCOSE, FASTING 146 MG/DL (70-100); MAGNESIUM LEVEL 2.1 MG/DL (1.8-2.4); MB/CK RELATIVE INDEX 2.22 (< OR =4); POTASSIUM SERUM 3.7 MEQ/L (3.5-5.1); SODIUM LEVEL 140 MEQ/L (136-145); TOTAL PROTEIN 7.5 GM/DL (6.4-8.2); TROPONIN I < 0.02 NG/ML (< 0.10)
[2018-06-28] MEDS: FUROSEMIDE 40 MG/4 ML VIAL (J1940) IV ×2 (06:31→18:30)
[2018-06-28] MEDS: CARVedilol 12.5 MG TAB PO ×2 (08:53→20:21)
[2018-06-28] MEDS: POTASSIUM CHLORIDE 10 MEQ SR TABLET PO (08:54)
[2018-06-28] MEDS: ENOXAPARIN 40 MG/0.4 ML SYRINGE (J1650) SC (08:54)
[2018-06-28] MEDS: SPIRONOLACTONE 25 MG TAB PO (08:54)
[2018-06-28] MEDS: LOSARTAN 50 MG TAB PO (20:21)
[2018-06-29 05:43] LABS: BASO # 0.1 10^3/uL (0.0-0.2); BASO % 1.3 % (0.0-1.0); EOS # 0.1 10^3/uL (0.0-0.50); EOS % 1.9 % (0.0-3.0); HEMATOCRIT 37.3 % (36.0-47.0); HEMOGLOBIN 11.2 g/dl (12.0-15.5); IMMATURE GRANULOCYTE % 0.1 % (0-3.0); LYMPH # 2.2 10^3/uL (1.5-4.5); MEAN CORPUSCULAR HEMOGLOBIN 24.7 pg (27.0-33.0); MEAN CORPUSCULAR VOLUME 82.2 fl (80.0-96.0); MONO # 0.8 10^3/uL (0.0-0.8); MONO % 11.7 % (0.0-5.0); NEUTROPHILS # 3.6 10^3/uL (1.8-7.7); PLATELET COUNT, AUTOMATED 309 10^3/uL (150-450); RED BLOOD COUNT 4.54 10^6/uL (4.00-5.40); RED CELL DISTRIBUTION WIDTH 15.9 % (11.5-14.5); WHITE BLOOD COUNT 6.8 10^3/uL (4.0-10.0)
[2018-06-29] MEDS: SLF 3 ML SYR IV ×3 (06:12→22:00)
[2018-06-29] MEDS: FUROSEMIDE 40 MG/4 ML VIAL (J1940) IV (06:12)
[2018-06-29 06:19] LABS: ALBUMIN 3.1 GM/DL (3.2-5.2); ALBUMIN/GLOBULIN RATIO 0.67 (1.00-1.93); ALKALINE PHOSPHATASE 115 U/L (45-117); ALT/SGPT 37 U/L (12-78); ANION GAP 5 MEQ/L (8-16); AST/SGOT 13 U/L (7-37); BILIRUBIN,TOTAL 1.2 MG/DL (0.2-1.0); BLOOD UREA NITROGEN 22 MG/DL (7-18); CALCIUM LEVEL 8.3 MG/DL (8.5-10.1); CARBON DIOXIDE LEVEL 30 MEQ/L (21-32); CHLORIDE LEVEL 104 MEQ/L (98-107); CREATININE FOR GFR 0.79 MG/DL (0.55-1.30); GLOMERULAR FILTRATION RATE > 60.0 (>51); GLUCOSE, FASTING 145 MG/DL (70-100); MAGNESIUM LEVEL 2.2 MG/DL (1.8-2.4); POTASSIUM SERUM 3.6 MEQ/L (3.5-5.1); SODIUM LEVEL 139 MEQ/L (136-145); TOTAL PROTEIN 7.7 GM/DL (6.4-8.2)
[2018-06-29] MEDS: SPIRONOLACTONE 25 MG TAB PO (09:09)
[2018-06-29] MEDS: CARVedilol 12.5 MG TAB PO ×2 (09:10→21:04)
[2018-06-29] MEDS: ENOXAPARIN 40 MG/0.4 ML SYRINGE (J1650) SC (09:10)
[2018-06-29] MEDS: POTASSIUM CHLORIDE 10 MEQ SR TABLET PO (09:10)
[2018-06-29] MEDS: LOSARTAN 50 MG TAB PO (21:04)
[2018-06-30] MEDS: SLF 3 ML SYR IV (06:00)
[2018-06-30 06:43] LABS: BASO # 0.1 10^3/uL (0.0-0.2); BASO % 1.6 % (0.0-1.0); EOS # 0.1 10^3/uL (0.0-0.50); EOS % 2.3 % (0.0-3.0); HEMATOCRIT 36.8 % (36.0-47.0); HEMOGLOBIN 11.1 g/dl (12.0-15.5); IMMATURE GRANULOCYTE % 0.2 % (0-3.0); LYMPH # 1.8 10^3/uL (1.5-4.5); LYMPH % 32.1 % (24.0-44.0); MEAN CORPUSCULAR HEMOGLOBIN 24.8 pg (27.0-33.0); MEAN CORPUSCULAR HGB CONC 30.2 g/dl (32.0-36.5); MEAN CORPUSCULAR VOLUME 82.1 fl (80.0-96.0); MONO # 0.7 10^3/uL (0.0-0.8); MONO % 12.4 % (0.0-5.0); NEUTROPHILS # 2.9 10^3/uL (1.8-7.7); NEUTROPHILS % 51.4 % (36.0-66.0); PLATELET COUNT, AUTOMATED 298 10^3/uL (150-450); RED BLOOD COUNT 4.48 10^6/uL (4.00-5.40); RED CELL DISTRIBUTION WIDTH 15.7 % (11.5-14.5); WHITE BLOOD COUNT 5.6 10^3/uL (4.0-10.0)
[2018-06-30 07:07] LABS: ALBUMIN 2.9 GM/DL (3.2-5.2); ALBUMIN/GLOBULIN RATIO 0.69 (1.00-1.93); ALKALINE PHOSPHATASE 108 U/L (45-117); ALT/SGPT 31 U/L (12-78); ANION GAP 6 MEQ/L (8-16); AST/SGOT 14 U/L (7-37); BLOOD UREA NITROGEN 18 MG/DL (7-18); CALCIUM LEVEL 8.5 MG/DL (8.5-10.1); CARBON DIOXIDE LEVEL 31 MEQ/L (21-32); CHLORIDE LEVEL 106 MEQ/L (98-107); CREATININE FOR GFR 0.78 MG/DL (0.55-1.30); GLOMERULAR FILTRATION RATE > 60.0 (>51); GLUCOSE, FASTING 145 MG/DL (70-100); MAGNESIUM LEVEL 2.2 MG/DL (1.8-2.4); SODIUM LEVEL 143 MEQ/L (136-145); TOTAL PROTEIN 7.1 GM/DL (6.4-8.2)
[2018-06-30] MEDS: ENOXAPARIN 40 MG/0.4 ML SYRINGE (J1650) SC (10:05)
[2018-06-30] MEDS: CARVedilol 12.5 MG TAB PO (10:06)
[2018-06-30] MEDS: SPIRONOLACTONE 25 MG TAB PO (10:06)
[2018-06-30] MEDS: POTASSIUM CHLORIDE 10 MEQ SR TABLET PO (10:06)
[2018-06-30] MEDS: FUROSEMIDE 20 MG TAB PO (10:07)
== END 2018-06-30 11:40 | disposition home or self-care (01) | DRG 194 ==
LOC: M MS5PR 06-29 18:44 → M ED 09:41 → M ED INP 12:15 → M PCU 14:30
DX: I11.0 Hypertensive heart disease with heart failure (principal); Z68.41 Body mass index [BMI] 40.0-44.9, adult; D64.9 Anemia, unspecified; E66.9 Obesity, unspecified; Z79.899 Other long term (current) drug therapy; I50.23 Acute on chronic systolic (congestive) heart failure

== ENCOUNTER → 2018-12-19 | Outpatient (CLI) | payer OTHER ==
[~2018-12-19] MED LIST: ALCOPAD17 TOP; ALDA25TA2 PO; ASPI81TAEC PO; BLOOKIT21 XX; CORE25TA PO; FURO20TA2 PO; FURO40TA2 PO; GLUC1TES2 XX; LANC30MI XX; LASI80TA3 PO; LISI2.5T76 PO; LOPR1TAB6 PO; LOSA100T50 PO; LOSA25TA14 PO; METF500T13 PO; METO1TAB7 PO; POTA10TA16 PO; SPIR-10 PO; VITAD1000T PO
[2018-12-19 10:51] LABS: BASO # 0.1 10^3/uL (0.0-0.2); BASO % 1.4 % (0.0-1.0); EOS # 0.3 10^3/uL (0.0-0.50); EOS % 3.5 % (0.0-3.0); HEMATOCRIT 41.7 % (36.0-47.0); HEMOGLOBIN 13.2 g/dl (12.0-15.5); LYMPH # 2.3 10^3/uL (1.5-4.5); LYMPH % 32.3 % (24.0-44.0); MEAN CORPUSCULAR HGB CONC 31.7 g/dl (32.0-36.5); MEAN CORPUSCULAR VOLUME 88.5 fl (80.0-96.0); MONO # 0.7 10^3/uL (0.0-0.8); NEUTROPHILS # 3.8 10^3/uL (1.8-7.7); NEUTROPHILS % 52.5 % (36.0-66.0); PLATELET COUNT, AUTOMATED 277 10^3/uL (150-450); RED BLOOD COUNT 4.71 10^6/uL (4.00-5.40); WHITE BLOOD COUNT 7.2 10^3/uL (4.0-10.0)
[2018-12-19 11:22] LABS: C REACTIVE PROTEIN QUANTITATIV 0.64 MG/DL (0.00-0.30); RHEUMATOID FACTOR QUANT < 10.0 IU/ML (<15.0); URIC ACID 4.3 MG/DL (2.6-6.0)
[2018-12-19 11:40] LABS: ERYTHROCYTE SEDIMENTATION RATE 35 mm/hr (0-30)
--- NOTE | 2018-12-19 11:52 | REP ---
Duplex extremity venous ultrasound: Left lower extremity. History: Left knee pain. Question DVT. Findings: The deep veins are anechoic and fully compressible from the groin to the popliteal fossa in the left lower extremity. Color flow imaging is homogeneous. Spectral Doppler interrogation demonstrates intact respiratory variation in flow and normal manual augmentation of flow. There is no evidence of deep vein thrombosis. Impression: Negative left lower extremity duplex venous ultrasound. No evidence of deep vein thrombosis. Electronically Signed by Juan Antonio Vaughan MD 12/19/2018 11:43 A
== END ==
LOC: M RAD 10:10 → M LAB 10:10
PROVIDERS: ATTEND Physician Assistant
DX: M25.562 Pain in left knee (principal)

== ENCOUNTER → 2019-08-17 | Outpatient (REF) | payer OTHER ==
[~2019-08-17] MED LIST changes: +CHOL100029 PO; -VITAD1000T PO
== END ==
LOC: M LABDRAW1 14:23
PROVIDERS: ATTEND Orthopaedic Surgery
DX: M25.562 Pain in left knee (principal)

== ENCOUNTER → 2019-10-18 | Outpatient (REF) | payer OTHER | LOC: M SFHCWAGY 13:48 | PROVIDERS: ATTEND Advanced Practice Midwife | DX: Z01.419 Encounter for gynecological examination (general) (routine) without abnormal findings (principal); Z12.4 Encounter for screening for malignant neoplasm of cervix ==

== ENCOUNTER → 2019-12-14 | Outpatient (CLI) | payer OTHER ==
[~2019-12-14] MED LIST changes: +LISI-1034 PO; -LISI2.5T76 PO
--- NOTE | 2019-12-15 07:19 | REPMRS ---
Patient History The patient states she had a clinical breast exam in October 2019. Patient is postmenopausal. No known family history of cancer. Digital Woman Screen Mammo: December 14, 2019 - Exam #: [id number] Bilateral CC and MLO view(s) were taken. Technologist: Octavia Campuzano, Technologist No prior studies available for comparison. FINDINGS: There are scattered fibroglandular densities. The Volpara volumetric breast density category is: B. There is no evidence of dominant mass, architectural distortion, or grouped microcalcification typical of malignancy. 3-D tomosynthesis shows no additional findings. Assessment: BI-RADS/ACR category 1 mammogram. Negative Mammogram. Recommendation Routine screening mammogram of both breasts in 1 year (for women over age 40). This patient's Lifetime Breast Cancer RIsk is estimated at 5.6 %. This mammogram was interpreted with the aid of an FDA-approved computer-aided dectection system. Electronically Signed By: Anibla Vaughan MD 12/14/19 1015
== END ==
LOC: M WHC 09:22
PROVIDERS: ATTEND Advanced Practice Midwife
DX: Z12.31 Encounter for screening mammogram for malignant neoplasm of breast (principal)

== ENCOUNTER 2020-11-13 09:55 | Emergency (ER) | payer OTHER ==
[~2020-11-13] VITALS: Ht 167.6 cm; Wt 102.1 kg
[~2020-11-13 09:55] MED LIST changes: +ASPI-569 PO; -ASPI81TAEC PO; -LISI-1034 PO; +LISI2.5T8 PO
--- NOTE | 2020-11-13 10:43 | REP ---
INDICATION: CHEST PAIN COMPARISON: 06/26/2018 TECHNIQUE: Portable AP view of the chest FINDINGS: The mediastinum and cardiac silhouette are stable and cardiomegaly is again noted. Lung meyers are relatively clear and without focal consolidation, effusion, or pneumothorax. Skeletal structures intact. IMPRESSION: No acute cardiopulmonary process appreciated. <Electronically signed by Uli Glaser > 11/13/20 1035
[2020-11-13 10:59] LABS: BASO # 0.1 10^3/uL (0.0-0.2); BASO % 1.4 % (0.0-1.0); EOS # 0.1 10^3/uL (0.0-0.5); EOS % 1.4 % (0.0-3.0); HEMATOCRIT 40.6 % (36.0-47.0); HEMOGLOBIN 12.9 g/dl (12.0-15.5); LYMPH # 2.1 10^3/uL (1.5-5.0); MEAN CORPUSCULAR HEMOGLOBIN 28.4 pg (27.0-33.0); MEAN CORPUSCULAR HGB CONC 31.8 g/dl (32.0-36.5); MEAN CORPUSCULAR VOLUME 89.2 fl (80.0-96.0); MONO # 0.5 10^3/uL (0.0-0.8); PLATELET COUNT, AUTOMATED 238 10^3/uL (150-450); RED BLOOD COUNT 4.55 10^6/uL (4.00-5.40); WHITE BLOOD COUNT 5.8 10^3/uL (4.0-10.0)
[2020-11-13 11:24] LABS: ALBUMIN 3.3 GM/DL (3.2-5.2); BILIRUBIN,DIRECT 0.3 MG/DL (0.0-0.2); BILIRUBIN,TOTAL 1.3 MG/DL (0.2-1.0); TOTAL PROTEIN 7.2 GM/DL (6.4-8.2)
[2020-11-13] MEDS ORDERED: ISOVUE-370 76% 100ML VIAL As Ordered ONE (13:07)
--- NOTE | 2020-11-13 13:26 | ECGEPIP ---
[facility] - ED Test Date: 2020-11-13 Pat Name: INDRA LACEY Department: Room: - Gender: Female [employer]: DOMITILA : 1960 Requested By: Faiza Tirado Order Number: [id number] Reading MD: Rose Rodriguez Measurements Intervals [place] Rate: 88 P: 65 [place]: 218 QRS: -6 QRSD: 120 T: 123 QT: 440 QTc: 532 Interpretive Statements Sinus rhythm with 1st degree AV block with frequent premature ventricular complexes NSTTW abnormalities Left ventricular hypertrophy with QRS widening ( R in aVL , Sokolow-Coles , Vinicius product ) ST & T wave abnormality, consider ischemia prolonged qtc prolonged qtc compared 06/26/18, clinical correlation Electronically Signed on 11-13-2020 13:26:26 EDT by Rose Rodriguez
--- NOTE | 2020-11-13 13:48 | REP ---
INDICATION: sob. COMPARISON: Chest CT dated 11/07/2017. TECHNIQUE: Chest CT with IV contrast, CT angiography. FINDINGS: There are no emboli in the pulmonary trunk or central pulmonary arteries. There are no emboli in the pulmonary artery lobar segment branches. There are no infiltrates or pleural effusions. Are bulla throughout the lung meyers bilaterally, most pronounced in the left upper lobe. The thoracic aorta is unremarkable. Cardiac size is enlarged. There is no pericardial effusion. Mediastinal, hilar or axillary adenopathy. The visualized upper abdominal contents are unremarkable. IMPRESSION: There are no pulmonary emboli. There are no infiltrates, pleural effusions, masses or nodules. There are bulla throughout the lung meyers bilaterally, most pronounced in the left upper lobe. <Electronically signed by Wilfredo Solorio > 11/13/20 0220
[2020-11-13] MEDS ORDERED: SPIRONOLACTONE 25 MG TAB PO STA (14:28)
[2020-11-13] MEDS ORDERED: CARVedilol 12.5 MG TAB PO ONE (14:30)
[2020-11-13] MEDS ORDERED: MORPHINE 2 MG/ML 1ML VIAL (J2270) IV ONE (14:30)
[2020-11-13] MEDS ORDERED: FUROSEMIDE 80 MG TAB PO ONE (14:30)
[2020-11-13 14:37] VITALS: BP 180/107
[2020-11-13 16:16] LABS: CK-MB VALUE MASS < 1.0 NG/ML (<3.6); CPK CREATINE PHOSPHOKINASE 64 U/L (26-192); MB/CK RELATIVE INDEX 1.56 (< OR =4); TROPONIN I < 0.02 NG/ML (< 0.10)
[2020-11-13 16:45] VITALS: BP 152/100
--- NOTE | 2020-11-14 01:27 | ECGEPIP ---
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
== END 2020-11-13 16:45 | disposition home or self-care (01) ==
LOC: M ED 09:55
DX: R07.9 Chest pain, unspecified (principal); R06.02 Shortness of breath; I11.0 Hypertensive heart disease with heart failure; E11.9 Type 2 diabetes mellitus without complications; Z79.899 Other long term (current) drug therapy
CPT/HCPCS: 71045; 71275; 80047; 80076; 82550; 82553; 83690; 83880; 85025; 93005; 93041; 94760; 96374; 99285; J2270; Q9967

== ENCOUNTER → 2023-10-08 | Outpatient (CLI) | payer OTHER ==
[~2023-10-08] MED LIST changes: +LOSA100T46 PO; -LOSA100T50 PO; +LOSA25TA13 PO; -LOSA25TA14 PO; +POTA-149 PO; -POTA10TA16 PO
[2023-10-08 14:34] LABS: BASO # 0.1 10^3/uL (0.0-0.2); BASO % 1.4 % (0.0-1.0); EOS # 0.1 10^3/uL (0.0-0.5); EOS % 1.7 % (0.0-3.0); HEMATOCRIT 46.8 % (36.0-47.0); HEMOGLOBIN 14.8 g/dl (12.0-15.5); LYMPH # 2.4 10^3/uL (1.5-5.0); LYMPH % 34.6 % (24.0-44.0); MEAN CORPUSCULAR HEMOGLOBIN 28.5 pg (27.0-33.0); MEAN CORPUSCULAR HGB CONC 31.6 g/dl (32.0-36.5); MONO # 0.6 10^3/uL (0.0-0.8); MONO % 8.4 % (2.0-8.0); NEUTROPHILS # 3.7 10^3/uL (1.5-8.5); NEUTROPHILS % 53.8 % (36.0-66.0); PLATELET COUNT, AUTOMATED 236 10^3/uL (150-450); WHITE BLOOD COUNT 6.9 10^3/uL (4.0-10.0)
[2023-10-08 14:55] LABS: HEMOGLOBIN A1c 6.8 % (4.0-6.0)
[2023-10-08 15:12] LABS: ALBUMIN 3.5 G/DL (3.2-5.2); ALKALINE PHOSPHATASE 134 U/L (46-116); ALT/SGPT 20 U/L (7.0-40); AST/SGOT 15 U/L (<34); BILIRUBIN,TOTAL 1.6 MG/DL (0.3-1.2); BLOOD UREA NITROGEN 12 MG/DL (9-23); CALCIUM LEVEL 9.1 MG/DL (8.3-10.6); CARBON DIOXIDE LEVEL 33 MMOL/L (20-31); CHLORIDE LEVEL 105 MMOL/L (98-107); CHOLESTEROL LEVEL 164 MG/DL (<200); GLOMERULAR FILTRATION RATE > 60.0 (>45); GLUCOSE, FASTING 110 MG/DL (74-106); HDL CHOLESTEROL 48.1 MG/DL (>40); LDL CHOLESTEROL 99.9 MG/DL (<100); NON-HDL-C 115.9 MG/DL; POTASSIUM SERUM 3.7 MMOL/L (3.5-5.1); SODIUM LEVEL 142 MMOL/L (136-145); TOTAL PROTEIN 7.3 G/DL (5.7-8.2); TRIGLYCERIDES LEVEL 80 MG/DL (<150)
[2023-10-08 15:14] LABS: TOTAL 25(OH) VITAMIN D 22.3 NG/ML (20.0-100.0); VITAMIN B12 LEVEL 1019 PG/ML (211-911)
[2023-10-08 15:20] LABS: CREATININE, URINE 276.1 MG/DL; MAU/CREAT RATIO 30.4 MCG/MG (0.0-30.0)
== END ==
LOC: M PLALAB 10:37
PROVIDERS: ATTEND Physician Assistant
DX: I50.9 Heart failure, unspecified (principal); E11.9 Type 2 diabetes mellitus without complications; E53.8 Deficiency of other specified B group vitamins; E55.9 Vitamin D deficiency, unspecified; Z13.220 Encounter for screening for lipoid disorders

== ENCOUNTER → 2024-01-05 | Outpatient (CLI) | payer OTHER ==
[2024-01-05 14:03] LABS: LIPASE 34 U/L (12-53)
[2024-01-05 14:05] LABS: THYROID STIMULATING HORMONE 0.806 uIU/ML (0.55-4.78)
[2024-01-05 14:06] LABS: ALBUMIN 3.2 G/DL (3.2-5.2); ALKALINE PHOSPHATASE 144 U/L (46-116); ALT/SGPT 29 U/L (7.0-40); AST/SGOT 14 U/L (<34); BLOOD UREA NITROGEN 13 MG/DL (9-23); CALCIUM LEVEL 8.7 MG/DL (8.3-10.6); CARBON DIOXIDE LEVEL 32 MMOL/L (20-31); CHLORIDE LEVEL 103 MMOL/L (98-107); GLOMERULAR FILTRATION RATE > 60.0 (>45); GLUCOSE, FASTING 262 MG/DL (74-106); POTASSIUM SERUM 4.1 MMOL/L (3.5-5.1); SODIUM LEVEL 139 MMOL/L (136-145); TOTAL PROTEIN 6.8 G/DL (5.7-8.2)
[2024-01-05 14:07] LABS: FREE T4 1.27 NG/DL (0.89-1.76)
== END ==
LOC: M PLALAB 08:15
PROVIDERS: ATTEND Physician Assistant
DX: R79.89 Other specified abnormal findings of blood chemistry (principal)

== ENCOUNTER → 2024-02-02 | Outpatient (CLI) | payer OTHER | LOC: M RAD 09:53 | PROVIDERS: ATTEND Physician Assistant | DX: R10.13 Epigastric pain (principal) ==

== ENCOUNTER → 2024-03-22 | Outpatient (CLI) | payer OTHER ==
[2024-03-22 16:18] LABS: BLOOD UREA NITROGEN 11 MG/DL (9-23); CALCIUM LEVEL 8.5 MG/DL (8.3-10.6); CARBON DIOXIDE LEVEL 27 MMOL/L (20-31); CHLORIDE LEVEL 105 MMOL/L (98-107); CREATININE FOR GFR 0.57 MG/DL (0.55-1.30); GLOMERULAR FILTRATION RATE > 60.0 (>45); GLUCOSE, FASTING 295 MG/DL (74-106); SODIUM LEVEL 139 MMOL/L (136-145)
== END ==
LOC: M PLALAB 12:47
PROVIDERS: ATTEND Physician Assistant
DX: K83.8 Other specified diseases of biliary tract (principal)

== ENCOUNTER → 2024-03-23 | Outpatient (CLI) | payer OTHER | LOC: M PLAIMG 08:15 | PROVIDERS: ATTEND Physician Assistant | DX: K83.8 Other specified diseases of biliary tract (principal) ==

== ENCOUNTER → 2024-05-03 | Outpatient (CLI) | payer OTHER ==
[2024-05-03 14:14] LABS: HEMATOCRIT 48.9 % (36.0-47.0); HEMOGLOBIN 15.5 g/dl (12.0-15.5); MEAN CORPUSCULAR HEMOGLOBIN 28.5 pg (27.0-33.0); MEAN CORPUSCULAR HGB CONC 31.7 g/dl (32.0-36.5); MEAN CORPUSCULAR VOLUME 89.9 fl (80.0-96.0); PLATELET COUNT, AUTOMATED 266 10^3/uL (150-450); RED BLOOD COUNT 5.44 10^6/uL (4.00-5.40); WHITE BLOOD COUNT 5.2 10^3/uL (4.0-10.0)
[2024-05-03 14:19] LABS: THYROID STIMULATING HORMONE 0.951 uIU/ML (0.55-4.78)
[2024-05-03 14:21] LABS: FREE T4 1.39 NG/DL (0.89-1.76)
[2024-05-03 14:23] LABS: ALBUMIN 3.6 G/DL (3.2-5.2); ALKALINE PHOSPHATASE 180 U/L (46-116); ALT/SGPT 20 U/L (7.0-40); AST/SGOT 11 U/L (<34); BILIRUBIN,TOTAL 1.6 MG/DL (0.3-1.2); BLOOD UREA NITROGEN 7 MG/DL (9-23); CALCIUM LEVEL 9.4 MG/DL (8.3-10.6); CARBON DIOXIDE LEVEL 32 MMOL/L (20-31); CHLORIDE LEVEL 102 MMOL/L (98-107); CREATININE FOR GFR 0.61 MG/DL (0.55-1.30); GLOMERULAR FILTRATION RATE > 60.0 (>45); GLUCOSE, FASTING 276 MG/DL (74-106); MAGNESIUM LEVEL 1.9 MG/DL (1.8-2.4); POTASSIUM SERUM 3.6 MMOL/L (3.5-5.1); SODIUM LEVEL 139 MMOL/L (136-145); TOTAL PROTEIN 7.9 G/DL (5.7-8.2)
== END ==
LOC: M PLALAB 09:41 → M PLAIMG 09:41
PROVIDERS: ATTEND Physician Assistant Medical
DX: R07.89 Other chest pain (principal)

== ENCOUNTER → 2024-05-04 | Outpatient (CLI) | payer OTHER | LOC: M CARPUL 12:55 | PROVIDERS: ATTEND Physician Assistant Medical | DX: R07.89 Other chest pain (principal) ==

== ENCOUNTER 2024-07-23 14:55 | Emergency (ER) | payer OTHER ==
[~2024-07-23] VITALS: Ht 170.2 cm; Wt 96.3 kg
[2024-07-23] MEDS ORDERED: ENTR1TAB (15:13)
[2024-07-23] MEDS ORDERED: OMEP-173 (15:13)
[2024-07-23] MEDS ORDERED: LEVO50TA5 (15:13)
[2024-07-23] MEDS ORDERED: SEMA1PEN2 (15:13)
[2024-07-23] MEDS ORDERED: AMOX875T2 PO (16:32)
[2024-07-23] MEDS: AUGMENTIN 875 MG TAB PO ONE (16:50)
[2024-07-23 16:53] VITALS: BP 108/77; TEMP 96.5; O2SAT 97
== END 2024-07-23 16:55 | disposition home or self-care (01) ==
LOC: M ED 14:55
DX: J18.1 Lobar pneumonia, unspecified organism (principal); E11.9 Type 2 diabetes mellitus without complications; I50.22 Chronic systolic (congestive) heart failure; I11.0 Hypertensive heart disease with heart failure; Z79.2 Long term (current) use of antibiotics; Z79.899 Other long term (current) drug therapy

== ENCOUNTER → 2024-08-25 | Outpatient (CLI) | payer OTHER ==
[~2024-08-25] MED LIST changes: +AMOX875T2 PO; +ENTR1TAB; +LEVO50TA5; +OMEP-173; +SEMA1PEN2
[2024-08-25 18:31] LABS: BASO # 0.1 10^3/uL (0.0-0.2); BASO % 1.1 % (0.0-1.0); EOS # 0.1 10^3/uL (0.0-0.5); EOS % 2.5 % (0.0-3.0); HEMATOCRIT 43.1 % (36.0-47.0); HEMOGLOBIN 14.1 g/dl (12.0-15.5); LYMPH # 2.2 10^3/uL (1.5-5.0); LYMPH % 38.7 % (24.0-44.0); MEAN CORPUSCULAR HEMOGLOBIN 29.6 pg (27.0-33.0); MEAN CORPUSCULAR HGB CONC 32.7 g/dl (32.0-36.5); MEAN CORPUSCULAR VOLUME 90.4 fl (80.0-96.0); MONO # 0.6 10^3/uL (0.0-0.8); MONO % 10.4 % (2.0-8.0); NEUTROPHILS # 2.6 10^3/uL (1.5-8.5); NEUTROPHILS % 47.1 % (36.0-66.0); PLATELET COUNT, AUTOMATED 222 10^3/uL (150-450); RED BLOOD COUNT 4.77 10^6/uL (4.00-5.40); WHITE BLOOD COUNT 5.6 10^3/uL (4.0-10.0)
[2024-08-25 18:49] LABS: THYROID STIMULATING HORMONE 0.904 uIU/ML (0.55-4.78)
[2024-08-25 18:50] LABS: FERRITIN 88.3 NG/ML (7.3-270.7); FREE T4 1.39 NG/DL (0.89-1.76)
[2024-08-25 18:51] LABS: ALBUMIN 3.5 G/DL (3.2-5.2); ALKALINE PHOSPHATASE 116 U/L (35-104); ALT/SGPT 22 U/L (7.0-40); AST/SGOT 15 U/L (<34); BILIRUBIN,TOTAL 1.8 MG/DL (0.3-1.2); BLOOD UREA NITROGEN 13 MG/DL (9-23); CALCIUM LEVEL 8.5 MG/DL (8.3-10.6); CARBON DIOXIDE LEVEL 30 MMOL/L (20-31); CHLORIDE LEVEL 104 MMOL/L (98-107); CHOLESTEROL LEVEL 246 MG/DL (<200); CHOLESTEROL RISK RATIO 5.87 (<5); CREATININE FOR GFR 0.57 MG/DL (0.55-1.30); GLOMERULAR FILTRATION RATE > 60.0 (>45); GLUCOSE, FASTING 88 MG/DL (74-106); HDL CHOLESTEROL 41.9 MG/DL (>40); LDL CHOLESTEROL 186.9 MG/DL (<100); NON-HDL-C 204.1 MG/DL; POTASSIUM SERUM 3.5 MMOL/L (3.5-5.1); SODIUM LEVEL 142 MMOL/L (136-145); TOTAL PROTEIN 7.4 G/DL (5.7-8.2); TRIGLYCERIDES LEVEL 86 MG/DL (<150)
[2024-08-25 19:19] LABS: HEMOGLOBIN A1c 6.7 % (4.0-6.0)
== END ==
LOC: M PLALAB 16:11
PROVIDERS: ATTEND Family Medicine
DX: I50.20 Unspecified systolic (congestive) heart failure (principal); E03.9 Hypothyroidism, unspecified; E11.9 Type 2 diabetes mellitus without complications

== ENCOUNTER → 2024-09-14 | Outpatient (CLI) | payer OTHER ==
[2024-09-14 15:52] LABS: ALBUMIN 3.2 G/DL (3.2-5.2); ALKALINE PHOSPHATASE 117 U/L (35-104); ALT/SGPT 22 U/L (7.0-40); AST/SGOT 13 U/L (<34); BILIRUBIN,TOTAL 1.3 MG/DL (0.3-1.2); BLOOD UREA NITROGEN 17 MG/DL (9-23); CALCIUM LEVEL 8.5 MG/DL (8.3-10.6); CARBON DIOXIDE LEVEL 29 MMOL/L (20-31); CHLORIDE LEVEL 105 MMOL/L (98-107); CREATININE FOR GFR 0.64 MG/DL (0.55-1.30); GLOMERULAR FILTRATION RATE > 60.0 (>45); GLUCOSE, FASTING 131 MG/DL (74-106); SODIUM LEVEL 141 MMOL/L (136-145); TOTAL PROTEIN 7.2 G/DL (5.7-8.2)
== END ==
LOC: M PLALAB 13:57
PROVIDERS: ATTEND Nurse Practitioner Family
DX: I50.20 Unspecified systolic (congestive) heart failure (principal)

== ENCOUNTER → 2024-11-01 | Outpatient (CLI) | payer OTHER ==
[2024-11-01 14:12] LABS: ALBUMIN 3.4 G/DL (3.2-5.2); ALKALINE PHOSPHATASE 116 U/L (35-104); ALT/SGPT 21 U/L (7.0-40); AST/SGOT 15 U/L (<34); BILIRUBIN,TOTAL 1.5 MG/DL (0.3-1.2); BLOOD UREA NITROGEN 9 MG/DL (9-23); CALCIUM LEVEL 8.7 MG/DL (8.3-10.6); CARBON DIOXIDE LEVEL 32 MMOL/L (20-31); CHLORIDE LEVEL 104 MMOL/L (98-107); CREATININE FOR GFR 0.71 MG/DL (0.55-1.30); GLOMERULAR FILTRATION RATE > 60.0 (>45); GLUCOSE, FASTING 88 MG/DL (74-106); POTASSIUM SERUM 3.9 MMOL/L (3.5-5.1); SODIUM LEVEL 142 MMOL/L (136-145); TOTAL PROTEIN 7.4 G/DL (5.7-8.2)
== END ==
LOC: M PLALAB 09:27
PROVIDERS: ATTEND Nurse Practitioner Family
DX: I50.20 Unspecified systolic (congestive) heart failure (principal); E11.9 Type 2 diabetes mellitus without complications

== ENCOUNTER → 2025-02-16 | Outpatient (CLI) | payer OTHER ==
[~2025-02-16] MED LIST changes: +CEFD300C PO
== END ==
LOC: M SLEEP HO 10:26
PROVIDERS: ATTEND Internal Medicine Cardiovascular Disease
DX: I27.20 Pulmonary hypertension, unspecified (principal); I50.22 Chronic systolic (congestive) heart failure

== ENCOUNTER → 2025-04-03 | Outpatient (CLI) | payer OTHER ==
[2025-04-03 19:49] LABS: ESTIMATED AVERAGE GLUCOSE 137.0 MG/DL (60-110)
== END ==
LOC: M PLALAB 15:23
PROVIDERS: ATTEND Nurse Practitioner Family
DX: I50.20 Unspecified systolic (congestive) heart failure (principal); E11.9 Type 2 diabetes mellitus without complications

== ENCOUNTER → 2025-04-19 | Outpatient (CLI) | payer OTHER | LOC: M WHC 13:37 | PROVIDERS: ATTEND Advanced Practice Midwife | DX: Z12.31 Encounter for screening mammogram for malignant neoplasm of breast (principal); Z13.820 Encounter for screening for osteoporosis; M85.89 Other specified disorders of bone density and structure, multiple sites; R92.323 Mammographic fibroglandular density, bilateral breasts ==

== ENCOUNTER → 2025-04-19 | Outpatient (REF) | payer OTHER ==
[2025-04-21 13:57] LABS: HPV APTIMA Not Detected (Not Detected)
== END ==
LOC: M SFHCWAGY 15:12
PROVIDERS: ATTEND Advanced Practice Midwife
DX: Z12.4 Encounter for screening for malignant neoplasm of cervix (principal)

== ENCOUNTER → 2025-05-16 | Outpatient (CLI) | payer OTHER ==
[2025-05-16 18:08] LABS: BASO # 0.1 10^3/uL (0.0-0.2); BASO % 1.3 % (0.0-1.0); EOS # 0.3 10^3/uL (0.0-0.5); EOS % 4.3 % (0.0-3.0); LYMPH # 2.7 10^3/uL (1.5-5.0); LYMPH % 38.5 % (24.0-44.0); MONO # 0.7 10^3/uL (0.0-0.8); MONO % 10.0 % (2.0-8.0); NEUTROPHILS # 3.2 10^3/uL (1.5-8.5); NEUTROPHILS % 45.8 % (36.0-66.0); PLATELET COUNT, AUTOMATED 242 10^3/uL (150-450)
[2025-05-16 18:40] LABS: ALT/SGPT 21 U/L (7.0-40); AST/SGOT 18 U/L (<34); CALCIUM LEVEL 8.9 MG/DL (8.3-10.6); CARBON DIOXIDE LEVEL 31 MMOL/L (20-31); CHLORIDE LEVEL 103 MMOL/L (98-107); CREATININE FOR GFR 0.71 MG/DL (0.55-1.30); GLOMERULAR FILTRATION RATE > 90.0 (>45); MAGNESIUM LEVEL 2.1 MG/DL (1.8-2.4); POTASSIUM SERUM 3.7 MMOL/L (3.5-5.1); SODIUM LEVEL 143 MMOL/L (136-145)
== END ==
LOC: M LAB 17:41
PROVIDERS: ATTEND Internal Medicine Cardiovascular Disease
DX: I50.22 Chronic systolic (congestive) heart failure (principal); I47.20 Ventricular tachycardia, unspecified; I34.0 Nonrheumatic mitral (valve) insufficiency; I42.0 Dilated cardiomyopathy; E03.9 Hypothyroidism, unspecified

== ENCOUNTER → 2025-05-29 | Outpatient (CLI) | payer OTHER ==
[2025-05-29 13:40] LABS: CHOLESTEROL LEVEL 155.0 MG/DL (<200); CHOLESTEROL RISK RATIO 3.42 (<5); LDL CHOLESTEROL 96.3 MG/DL (<100); NON-HDL-C 109.7 MG/DL; TRIGLYCERIDES LEVEL 67.0 MG/DL (<150)
[2025-05-30 16:52] LABS: CREATININE, URINE 216.1 MG/DL; MALB URINE SIEMENS 55.0 MG/L; MAU/CREAT RATIO 25.4 MCG/MG (0.0-30.0)
== END ==
LOC: M PLALAB 11:04
PROVIDERS: ATTEND Family Medicine
DX: E78.2 Mixed hyperlipidemia (principal); E11.9 Type 2 diabetes mellitus without complications

== ENCOUNTER → 2025-05-29 | Outpatient (REF) | payer OTHER | LOC: M SFHCPLAZ 10:40 | PROVIDERS: ATTEND Family Medicine | DX: Z53.9 Procedure and treatment not carried out, unspecified reason (principal) ==